=== PATIENT | male | born 1985 | race Caucasian/White ===

== ENCOUNTER 2024-07-06 19:48 | Emergency (ER) | payer SELFPAY ==
[2024-07-06] MEDS ORDERED: KETOROLAC 30 MG/ML INJ ONE (20:19)
[2024-07-06] MEDS ORDERED: dexAMETHasone 10 MG/ML VIAL ONE (20:19)
[2024-07-06] MEDS ORDERED: HYDROCODONE/APAP 7.5/325 MG TAB ONE (20:20)
--- NOTE | 2024-07-06 20:33 | EDPHYS ---
Physician Documentation [facility] Name: Margarito Quinteros Age: 38 yrs Sex: Male : 1985 Arrival Date: 07/06/2024 Time: 19:48 Bed 5 Private MD: ED Physician Alexander Sorenson HPI: 07/06 20:10 This 38 yrs old Male presents to ER via Ambulatory with complaints of POSSIBLE GOUT cp FLAREUP. 20:10 The patient presents with pain, that is acute. cp 20:10 The complaints affect the right knee. Context: the patient can fully bear weight, the cp patient is able to ambulate, with moderate difficulty, patient reports PMHX significant for gout with flare-up in the past affecting right knee. denies injury. Onset: The symptoms/episode began/occurred 3 day(s) ago. Modifying factors: the symptoms are aggravated by movement, weight bearing, bending knee. Associated signs and symptoms: Pertinent negatives calf tenderness, fever, numbness, rash, warmth, injury. Patient reports he has been taking Colchicine w/o relief and steroid shot has helped in the past. Historical: - Allergies: 19:59 Erythromycin; bm8 - Home Meds: 19:59 hctz [Active]; bm8 - PMHx: 19:59 Gout; Hypertensive disorder; bm8 - PSHx: 19:59 None; bm8 - Immunization history:: Adult Immunizations up to date. - Infectious Disease History:: Denies. - Social history:: Smoking status: Patient denies any tobacco usage or history of. ROS: 20:15 MS/extremity: Positive for pain, tenderness, of the right knee, Negative for injury or cp acute deformity, decreased range of motion, paresthesias, warmth, 20:15 Neck: Negative for pain with movement, pain at rest, stiffness, cp 20:15 Back: Negative for pain at rest, pain with movement, Exam: 20:20 Constitutional: The patient appears in no acute distress, alert, awake, non-toxic, well cp developed, well nourished, uncomfortable, 20:20 Head/Face: Normocephalic, atraumatic. cp 20:20 Chest/axilla: Inspection: normal, 20:20 Cardiovascular: Rate: normal, 20:20 Respiratory: the patient does not display signs of respiratory distress, Respirations: normal, no use of accessory muscles, no retractions, labored breathing, is not present, 20:20 Abdomen/GI: Exam negative for discomfort, distension, guarding, Inspection: abdomen appears normal, 20:20 Back: pain, is absent, ROM is normal, 20:20 Musculoskeletal/extremity: Extremities: noted in the right knee: tenderness and pain anterior right knee below patella lateral side, mild swelling, no joint effusion, overlying skin warm and dry and intact with no signs cellulitis and/or septic joint, ROM: limited passive range of motion due to pain, in the right knee, Perfusion: the extremity is normally perfused throughout, the right leg Sensation intact. 20:20 Neuro: Orientation: to person, place \T\ time. Mentation: is normal, Motor: moves all fours, strength is normal, Vital Signs: 19:57 BP 177 / 107; Pulse 95; Resp 18; Temp 98.1; Pulse Ox 98% ; Weight 99.79 kg; Height 5 bm8 ft. 3 in. ; Pain 7/10; 20:43 BP 179 / 109; Pulse 93; Resp 18; Pulse Ox 97% ; al5 19:57 Body Mass Index 38.97 (99.79 kg, 160.02 cm) bm8 19:57 Pain Scale: Adult bm8 MDM: 20:02 Medical Screening Exam initiated cp 20:25 Differential diagnosis: gouty arthritis, septic joint, cellulitis, chronic joint pain. cp 20:33 Data reviewed: vital signs, nurses notes, radiologic studies, plain films, and as a cp result, I will discharge patient. 20:33 I considered the following discharge prescriptions or medication management in the emergency department Medications were administered in the Emergency Department. See MAR. Test considered but Not performed: X-ray: right knee. Care significantly affected by the following chronic conditions: Hypertension, gout. Counseling: I had a detailed discussion with the patient and/or guardian regarding the historical points, exam findings, and any diagnostic results supporting the discharge/admit diagnosis, to return to the emergency department if symptoms worsen or persist or if there are any questions or concerns that arise at home. Response to treatment: the patient's symptoms have mildly improved after treatment, and as a result, I will discharge patient. Administered Medications: 20:28 Not Given (Physician Discretion): [id number] mg IVP once cp 20:35 Drug: Dexamethasone IM 10 mg IM once Route: IM; Site: right deltoid; vc1 20:51 Follow up: Response: No adverse reaction; Marked relief of symptoms; Pain is decreased vc1 20:35 Drug: Hydrocodone-Acetaminophen PO (7.5 mg-325 mg) 1 tabs PO once; RASS on ADMIN: vc1 Combtv4, Very Agttd3, Agttd2, Rstlss1, AlertClm0, Drwsy-1, Lt Sdtn-2, Mod Sdtn-3, Dp Sdtn-4, UnArsble-5 Route: PO; 20:51 Follow up: Response: No adverse reaction; Marked relief of symptoms; Pain is decreased vc1 20:35 Drug: Ketorolac IM 30 mg IM once Route: IM; Site: left deltoid; vc1 20:51 Follow up: Response: No adverse reaction; Marked relief of symptoms; Pain is decreased vc1 Disposition: 07/07 15:33 Chart complete. cp Disposition Summary: 07/06/24 20:33 Discharge Ordered Notes: stop the colchicine Location: Home cp Problem: an acute exacerbation cp Symptoms: have improved cp Condition: Stable cp Diagnosis - Gout, unspecified cp - Pain in right knee cp Followup: cp - With: Private Physician - When: 2 - 3 days - Reason: Worsening of condition Discharge Instructions: - Discharge Summary Sheet cp - Joint Pain cp - Gout cp - Low-Purine Eating Plan cp Forms: - Medication Reconciliation Form cp - Antibiotic Education cp - Prescription Opioid Use cp - Patient Portal Instructions cp - Leadership Thank You Letter cp Prescriptions: - Diclofenac Sodium 75 mg Oral Tablet Sustained Release - take 1 tablet ORAL route 2 times per day; 30 tablet; Refills: 0, Product cp Selection Permitted - Prednisone 20 mg Oral Tablet - take 2 tablets ORAL route once daily for 5 days; 10 tablet; Refills: 0, Product cp Selection Permitted Signatures: Dominic Jay PA PA cp Urszula Del Cid RN RN vc1 Wally Lowe RN RN bm8
--- NOTE | 2024-07-06 20:33 | ER ---
Nurse's Notes [facility] Name: Margarito Quinteros Age: 38 yrs Sex: Male : 1985 Arrival Date: 07/06/2024 Time: 19:48 Bed 5 Private MD: Diagnosis: Gout, unspecified;Pain in right knee Presentation: 07/06 19:57 Chief complaint: Patient states: I think I am having a gout flare up in my right knee, bm8 its been going on for 3 days. Coronavirus screen: At this time, the client does not indicate any symptoms associated with coronavirus-19. Ebola Screen: Patient negative for fever greater than or equal to 101.5 degrees Fahrenheit, and additional compatible Ebola Virus Disease symptoms Patient denies exposure to infectious person. Patient denies travel to an Ebola-affected area in the 21 days before illness onset. No symptoms or risks identified at this time. Initial Sepsis Screen: Does the patient meet any 2 criteria? No. Patient's initial sepsis screen is negative. Does the patient have a suspected source of infection? No. Patient's initial sepsis screen is negative. Risk Assessment: Do you want to hurt yourself or someone else? Patient reports no desire to harm self or others. Onset of symptoms was July 03, 2024. 19:57 Method Of Arrival: Ambulatory bm8 19:57 Acuity: TELMA 3 bm8 Triage Assessment: 19:59 General: Appears in no apparent distress. uncomfortable, Behavior is calm, cooperative, bm8 appropriate for age. Pain: Complains of pain in right knee Pain currently is 7 out of 10 on a pain scale. Quality of pain is described as aching. EENT: No deficits noted. No signs and/or symptoms were reported regarding the EENT system. Neuro: No deficits noted. Level of Consciousness is awake, alert, obeys commands, Oriented to person, place, time, situation, Appropriate for age. Cardiovascular: Denies chest pain, Capillary refill < 3 seconds in bilateral fingers Patient's skin is warm and dry. Respiratory: Airway is patent Respiratory effort is even, unlabored, Respiratory pattern is regular, symmetrical. GI: No signs and/or symptoms were reported involving the gastrointestinal system. : No signs and/or symptoms were reported regarding the genitourinary system. Derm: No signs and/or symptoms reported regarding the dermatologic system. Musculoskeletal: Circulation, motion, and sensation intact. Capillary refill < 3 seconds, in bilateral fingers. Swelling present in right knee Tenderness Reports pain in right knee. Historical: - Allergies: 19:59 Erythromycin; bm8 - Home Meds: 19:59 hctz [Active]; bm8 - PMHx: 19:59 Gout; Hypertensive disorder; bm8 - PSHx: 19:59 None; bm8 - Immunization history:: Adult Immunizations up to date. - Infectious Disease History:: Denies. - Social history:: Smoking status: Patient denies any tobacco usage or history of. Screenin:45 [facility] ED Fall Risk Assessment (Adult) History of falling in the last 3 months, vc1 including since admission No falls in past 3 months (0 pts) Confusion or Disorientation No (0 pts) Intoxicated or Sedated No (0 pts) Impaired Gait No (0 pts) Mobility Assist Device Used No (0 pt) Altered Elimination No (0 pt) Score/Fall Risk Level 0 - 2 = Low Risk Oriented to surroundings, Maintained a safe environment, Educated pt \T\ family on fall prevention, incl call for assistance when getting out of bed. Abuse screen: Denies threats or abuse. Nutritional screening: No deficits noted. Tuberculosis screening: No symptoms or risk factors identified. Vital Signs: 19:57 BP 177 / 107; Pulse 95; Resp 18; Temp 98.1; Pulse Ox 98% ; Weight 99.79 kg; Height 5 bm8 ft. 3 in. ; Pain 7/10; 20:43 BP 179 / 109; Pulse 93; Resp 18; Pulse Ox 97% ; al5 19:57 Body Mass Index 38.97 (99.79 kg, 160.02 cm) bm8 19:57 Pain Scale: Adult bm8 ED Course: 19:51 Patient arrived in ED. [id number] 19:59 Triage completed. bm8 19:59 Arm band placed on right wrist. bm8 20:00 Patient has correct armband on for positive identification. Bed in low position. Call vc1 light in reach. Provided Education on: stop colchicine, f/u with PCP. 20:00 Pulse ox on. NIBP on. vc1 20:02 Dominic Jay PA is PHCP. cp 20:02 Alexander Sorenson MD is Attending Physician. cp 20:45 Urszula Del Cid, RN is Primary Nurse. vc1 20:52 No provider procedures requiring assistance completed. Patient did not have IV access vc1 during this emergency room visit. Administered Medications: 20:28 Not Given (Physician Discretion): [id number] mg IVP once cp 20:35 Drug: Dexamethasone IM 10 mg IM once Route: IM; Site: right deltoid; vc1 20:51 Follow up: Response: No adverse reaction; Marked relief of symptoms; Pain is decreased vc1 20:35 Drug: Hydrocodone-Acetaminophen PO (7.5 mg-325 mg) 1 tabs PO once; RASS on ADMIN: vc1 Combtv4, Very Agttd3, Agttd2, Rstlss1, AlertClm0, Drwsy-1, Lt Sdtn-2, Mod Sdtn-3, Dp Sdtn-4, UnArsble-5 Route: PO; 20:51 Follow up: Response: No adverse reaction; Marked relief of symptoms; Pain is decreased vc1 20:35 Drug: Ketorolac IM 30 mg IM once Route: IM; Site: left deltoid; vc1 20:51 Follow up: Response: No adverse reaction; Marked relief of symptoms; Pain is decreased vc1 Medication: 20:46 VIS not applicable for this client. vc1 Outcome: 20:33 Discharge ordered by MD. cp 20:52 Discharged to home ambulatory, vc1 20:52 Condition: stable 20:52 Discharge instructions given to patient, Instructed on discharge instructions, follow up and referral plans. medication usage, Demonstrated understanding of instructions, follow-up care, medications, Prescriptions given X 2, 20:54 Patient left the ED. vc1 Signatures: Dominic Jay PA PA cp Jeffries, Jennifer [id number] Urszula Del Cid, RN RN vc1 Wally Lowe RN RN bm8 Sherie Pedersen RN RN al5
[2024-07-06 21:04] VITALS: TEMP 98.1
[2024-07-06 21:05] VITALS: BP 179/109; O2SAT 97
== END 2024-07-06 20:54 | disposition home or self-care (01) ==
LOC: ER 19:48
DX: M10.9 Gout, unspecified (principal)
CPT/HCPCS: 96372; 99284; J1100